=== PATIENT | female | born 2000 ===

== ENCOUNTER 2022-10-18 22:00 | Emergency (ER) | payer OTHER, MEDICAID, SELFPAY ==
[2022-10-18 22:03] VITALS: BP 132/94; PULSE 85; RESP 16; TEMP 36.4; O2SAT 99; BMI 34.1
--- NOTE | 2022-10-19 00:53 | ED.BACK ---
HPI - Back Pain/Injury General Chief Complaint: Back Pain/Injury Stated Complaint: back pain. 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 She was kneeling on the floor helping 1 of the residents get back into bed by lifting her legs when she felt a pop in the middle of her back searing pain and was unable to stand up. She describes pain and muscle spasm but not actually weakness. There is no radicular pain. Findings are localized over the L 345 area with paraspinous spasm bilaterally. She was having so much tenderness she was unable to get up off the floor and medics were called to transport her to the emergency department. She states that she is never had similar findings. Related Data Previous Rx's Medication Instructions Recorded dexamethasone 4 mg tablet 10 mg PO DAILY #5 tabs 10/19/22 oxycodone-acetaminophen 5 mg-325 1 tab PO Q6H PRN pain #14 tabs 10/19/22 mg tablet Allergies Allergy/AdvReac Type Severity Reaction Status Date / Time No Known Drug Allergies Allergy Verified 10/18/22 22:03 Review of Systems Review of Systems Narrative: Remainder of complete review of systems is otherwise unremarkable except for that included in the HPI. Patient History Social History Smoking Status: Never smoker Smoking Status: Never smoker Substance Use Type: does not use Exam Initial Vital Signs Initial Vital Signs: Vital Signs Temperature 97.5 F L 10/18/22 22:03 Pulse Rate 85 10/18/22 22:03 Respiratory Rate 16 10/18/22 22:03 Blood Pressure 132/94 H 10/18/22 22:03 Pulse Oximetry 99 10/18/22 22:03 Oxygen Delivery Method Room Air 10/18/22 22:03 General: Healthy appearing, in severe distress. Able to give a complete and coherent history. Well-nourished well-developed HEENT: Moist mucous membranes, normal sclera with reactive pupils, Respiratory: Lungs are clear to auscultation, no wheezing no rales no rhonchi. Full and symmetrical air movement Cardiac: Regular rate and rhythm no murmurs no bruits Abdomen: Soft, nontender, good bowel tones, no flank pain Skin: Warm and dry, no rashes Neurologic: Grossly neurologically intact with no obvious asymmetries or abnormalities no weakness into the lower extremities. No sensory deficits in lower extremities. Spine: Significant paraspinous spasm around L3-L4 bilaterally. No rashes, bruising, midline point tenderness. Extremities: No trauma, well perfused Psych: Cooperative, appropriate insight and affect Course Orders Ordered: Discontinued Medications Dexamethasone (Dexamethasone 4 Mg Tablet) 12 mg PO NOW ONE Stop: 10/19/22 01:10 Last Admin: 10/19/22 01:21 Dose: 12 mg Documented By: NATASHA Diazepam (Diazepam 2 Mg Tablet) 2 mg PO NOW ONE Stop: 10/19/22 01:10 Last Admin: 10/19/22 01:22 Dose: 2 mg Documented By: NATASHA Hydromorphone HCl (Hydromorphone 1 Mg Inj) 1 mg IM NOW ONE Stop: 10/19/22 03:49 Last Admin: 10/19/22 04:02 Dose: 1 mg Documented By: NATASHA Ketorolac Tromethamine (Ketorolac 30 Mg/Ml Vial) 30 mg IM NOW ONE Stop: 10/19/22 01:10 Last Admin: 10/19/22 01:22 Dose: 30 mg Documented By: NATASHA Oxycodone/Acetaminophen (Oxycodone/Acetaminophen 5/325 Tablet) 1 tab PO NOW ONE Stop: 10/19/22 01:10 Last Admin: 10/19/22 01:23 Dose: 1 tab Documented By: NATASHA Oxycodone/Acetaminophen (Oxycodone/Apap 5/325 Prepack) 1 bottle MISC SEEINSTR ONE Stop: 10/19/22 01:10 Last Admin: 10/19/22 01:28 Dose: 1 bottle Documented By: NATASHA Vital Signs Vital signs: Vital Signs - 8 hr 10/19/22 04:26 Temperature 97.3 F L Pulse Rate 68 Respiratory Rate 14 Blood Pressure 122/70 Pulse Oximetry 98 Oxygen Delivery Method Room Air MDM - Back Pain/Injury MDM Narrative Medical decision making narrative: CC: Severe bilateral low back pain acute finding uncertain prognosis Complicating co-morbidities: Otherwise healthy young woman no prior back injuries Data collected from: patient, Differential considered: Acute muscle spasm, disc disease, pathologic compression fracture, risk for cauda equina syndrome is low as is risk for epidural abscess or diskitis Exam documented above, pertinent findings include: Severe pain and muscle spasm without any acute neurologic findings Imaging studies independently reviewed: Low back pain acute onset without trauma in an otherwise healthy woman and no significant risk factors has no indication for imaging at this time Treatments: IM Toradol, oral Percocet, oral diazepam. With this combination she was at least able to sit up without pain she was able to lay comfortably without pain by this point as well. She is given an additional 1 mg IM Dilaudid to help her get in the car to get home. Percocet prepack and Percocet prescription given. Discussion: Severe acute muscle spasm low back without significant red flags to suggest cauda equina syndrome, epidural abscess, pathologic fracture. Talked about gentle ambulation, ibuprofen and Tylenol, ice and heat. She is given a prescription for Percocet. [place] that acute pain management rather than any muscle relaxers would probably be most beneficial for her. Reviewed use of MiraLax to help prevent constipation. Reviewed addictive potential and importance of early mobilization. Encouraged follow-up with her primary care doctor. She may benefit from physical therapy as well. Reviewed with her the likely recommendation of at least 6 weeks of conservative management before any further discussion of advanced imaging. Questions are answered. L and I forms are filled out. She is safe for discharge home Discharge Plan Departure Patient Disposition: Home Clinical Impression: Strain of lumbar region Instructions: DI for Back Strain or Sprain Activity Restrictions/Additional Instructions: Thank you for coming in today You clearly have significantly strained your low back with significant muscle spasm and pain. Fortunately I am not appreciating anything that looks like an acute surgical emergency or a reason to do additional imaging or blood work today Using 400 mg of ibuprofen (2 [id number] pills) and 1 Tylenol every 6 hours can be very helpful in controlling pain. For severe pain you can add 1-2 Percocet to this combination. Prescriptions were sent to [facility] in [place] Percocet is a narcotic and will make you constipated. Please add at least a scoop of MiraLax daily and if you has not had a bowel movement that day, add an extra scoop of MiraLax. I would expect the pain to actually be worse in the next 24 hours. I have given you some Percocet to have at home and a prescription for more. I have also given you to additional days of dexamethasone which is a steroid to help with inflammation. Reasons to return to the emergency room include weakness meaning even if it did not hurt you still could not lift your leg or your leg would give out on you or complete loss of sensation over your perineum (the entire area between your legs), or loss of urine or leaking stool. All of these things can suggest pinching of the very end of your spinal cord and do need further evaluation. Ice can be helpful to your low back. Gentle stretching once the acute pain is over will be helpful. It is important that, despite the pain, you are still getting up and walking around for a bit. I would encourage you to follow-up with your primary care provider. You may find that physical therapy can be helpful. If you are still having severe pain or develop any weakness by 6 weeks, the next steps might include additional imaging including MRI. Prescriptions: New oxycodone-acetaminophen 5-325 mg tablet 1 tab PO Q6H PRN (Reason: pain) Qty: 14 0RF dexamethasone 4 mg tablet 10 mg PO DAILY Qty: 5 0RF Stand Alone Forms: Patient Portal/API, Work Release Note
[2022-10-19] MEDS: dexAMETHasone 4 MG TABLET 12 MG PO (01:21)
[2022-10-19] MEDS: KETOROLAC 30 MG/ML VIAL IM (01:22)
[2022-10-19] MEDS: diazePAM 2 MG TABLET PO (01:22)
[2022-10-19] MEDS: OXYCODONE/ACETAMINOPHEN 5/325 TABLET 1 TAB PO (01:23)
[2022-10-19] MEDS: OXYCODONE/APAP 5/325 PREPACK 1 BOTTLE MISC (01:28)
[2022-10-19] MEDS: HYDROMORPHONE 1 MG INJ IM (04:02)
[2022-10-19 04:26] VITALS: BP 122/70; PULSE 68; RESP 14; TEMP 36.3; O2SAT 98
== END 2022-10-19 04:27 | disposition home or self-care (01) ==
PROVIDERS: Emergency Provider Emergency Medicine
DX: S39.012A Strain of muscle, fascia and tendon of lower back, initial encounter (principal); X50.0XXA Overexertion from strenuous movement or load, initial encounter; Y93.F2 Activity, caregiving, lifting; Y92.122 Bedroom in nursing home as the place of occurrence of the external cause; Y99.0 Civilian activity done for income or pay
CPT/HCPCS: 96372; 99283; J1170; J1885